=== PATIENT | female | born 1960 | race Caucasian/White ===

== ENCOUNTER 2024-11-20 11:09 | Outpatient (CLI) | payer OTHER | END 2024-11-20 11:10 | disposition home or self-care (01) | LOC: SCSRAD 11:09 | PROVIDERS: ATTEND Family Medicine | DX: R09.81 Nasal congestion (principal) | CPT/HCPCS: 71046; 87635 ==

== ENCOUNTER 2025-06-13 14:21 | Outpatient (CLI) | payer MEDICARE | END 2025-06-13 14:22 | disposition home or self-care (01) | LOC: SCSRAD 14:21 | PROVIDERS: ATTEND Family Medicine | DX: R10.13 Epigastric pain (principal) | CPT/HCPCS: 36415; 74019; 80053; 82150; 83690; 85025 ==